=== PATIENT | female | born 1960 | race African-American/Black ===

== ENCOUNTER 2017-05-20 07:25 | Day surgery (SDC) | payer OTHER ==
[2017-05-20] VITALS (8 sets, daily range): BP systolic 93–134; BP diastolic 53–66
[~2017-05-20] VITALS: Ht 165.1 cm; Wt 70.8 kg
[2017-05-20] MEDS ORDERED: HYDROCHLOROTHIA50 MG ORAL (08:06)
[2017-05-20] MEDS ORDERED: ATENOLOL50 MG ORAL (08:06)
[2017-05-20] MEDS ORDERED: METFORMIN HCL500 M4 ORAL (08:06)
[2017-05-20] MEDS ORDERED: LOSARTAN POTAS100 MG ORAL (08:06)
--- NOTE | 2017-05-20 08:50 | Short Stay Surgery H&P ---
History of Present Illness History of Present Illness Chief Complaint screening colon HPI Hailey Bucio is a 57 year old female who was admitted on for Screening Colonoscopy Patient History Allergies: Coded Allergies: No Known Allergies (Unverified , 05/20/17) PAST MEDICAL HISTORY: (1) HTN (hypertension) (2) DM Medication History Scheduled Atenolol* (Tenormin*), 50 MG ORAL DAILY, (Reported) Hydrochlorothiazide* (Hydrochlorothiazide*), 50 MG ORAL TID, (Reported) Losartan Potassium (Losartan Potassium), 100 MG ORAL DAILY, (Reported) Metformin Hcl (Metformin Hcl Er), 500 MG ORAL BID, (Reported) Review of Systems Cardiovascular: Reports: no symptoms Respiratory: Reports: no symptoms Skeletal: Reports: no symptoms Gastrointestinal: Reports: no symptoms Genitourinary: Reports: no symptoms Neurologic: Reports: no symptoms Endocrine: Reports: no symptoms Hematologic: Reports: no symptoms Physical Exam Vital Signs Last Vital Signs Date Time Temp Pulse Resp B/P (MAP) Pulse Ox O2 Delivery O2 Flow Rate FiO2 05/20/17 08:07 97.3 61 14 134/66 99 Room Air 97.3 Skin: normal HENT: normal Heart: normal Lungs: normal Abdomen: normal Extremities: normal Plan Plan of Care colonoscopy Attestation Are the patient's medical conditions optimized for surgery? Attestation Response: yes EMILY SANDERS May 20, 2017 08:50
--- NOTE | 2017-05-20 08:51 | Pre-Procedure Note/Attestation ---
Pre-Procedure Note/Attestation Complete Prior to Procedure Planned Procedure: not applicable Procedure Narrative: colonoscopy Indications for Procedure Pre-Operative Diagnosis: screening Attestation I attest that I discussed the nature of the procedure; its benefits; risks and complications; and alternatives (and the risks and benefits of such alternatives ), prior to the procedure, with the patient (or the patient's legal corporate sales representative). I attest that, if there was a reasonable possibility of needing a blood transfusion, the patient (or the patient's legal corporate sales representative) was given the [facility] standardized written summary, pursuant to the [place] Blood Safety Act ([place] Health and Safety Code # 1645, as amended). I attest that I re-evaluated the patient just prior to the surgery and that there has been no change in the patient's H&P, except as documented below: EMILY SANDERS May 20, 2017 08:51
[2017-05-20] MEDS ORDERED: Lidocaine 1% MPF 10mg/ml 5ml ONE (09:00)
[2017-05-20] MEDS ORDERED: Propofol 200mg/20ml IV ONE (09:00)
--- NOTE | 2017-05-20 09:07 | Anethesia Preoperative Eval ---
Anesthesia Pre-op PMH/ROS General Date of Evaluation: May 20, 2017 Time of Evaluation: 08:58 Anesthesiologist: camelia ASA Score: ASA 3 Mallampati Score Class I : Soft palate, uvula, fauces, pillars visible Class II: Soft palate, uvula, fauces visible Class III: Soft palate, base of uvula visible Class IV: Only hard plate visible Mallampati Classification: Class I Surgeon: jc Diagnosis: colon screening Surgical Procedure: colonoscopy Anesthesia History: none Family History: no anesthesia problems Allergies: Coded Allergies: No Known Allergies (Unverified , 05/20/17) Medications: see eMAR Past Medical History Cardiovascular: Reports: HTN Endocrine: Reports: DM Anesthesia Pre-op Phys. Exam Physician Exam Last Vital Signs Date Time Temp Pulse Resp B/P (MAP) Pulse Ox O2 Delivery O2 Flow Rate FiO2 05/20/17 08:07 97.3 61 14 134/66 99 Room Air 97.3 Constitutional: NAD Neurologic: CN 2-12 intact Cardiovascular: RRR Respiratory: CTA Gastrointestinal: S/NT/ND Airway Exam Mallampati Score: Class II MO: full Neck: supple TMD: 2fb ROM: full Teeth: missing Anesthesia Pre-op A/P Risk Assessment & Plan Assessment: asa3 Plan: mac Status Change Before Surgery: No Pre-Antibiotics Drug: MARIBEL Matt May 20, 2017 09:07
[2017-05-20] MEDS ORDERED: DiphenhydrAMINE 50mg/ml Inj IVP PRN (09:15)
[2017-05-20] MEDS ORDERED: fentaNYL 100 mcg/2 mL IV PRN (09:15)
[2017-05-20] MEDS ORDERED: Atropine Inj 1mg/10ml Syr IV PRN (09:15)
[2017-05-20] MEDS ORDERED: Midazolam 2mg/2ml Inj IVP PRN (09:15)
--- NOTE | 2017-05-20 09:55 | Immediate Post-Op Evaluation ---
Immediate Post-Op Evalulation Immediate Post-Op Evalulation Procedure: colonoscopy Date of Evaluation: May 20, 2017 Time of Evaluation: 09:56 IV Fluids: 800ml 0.9ns Blood Products: none Estimated Blood Loss: negligible Blood Pressure Systolic: 93 Blood Pressure Diastolic: 66 Pulse Rate: 60 Respiratory Rate: 18 O2 Sat by Pulse Oximetry: 10 Temperature (Fahrenheit): 7.1 Pain Score (1-10): 0 Nausea: No Vomiting: No Complications none Patient Status: awake, reacts, patent Hydration Status: adequate Drug: MARIBEL Matt May 20, 2017 09:55
--- NOTE | 2017-05-20 09:59 | Endoscopy Procedure Note ---
Endoscopy Procedure Note General Indication for Procedure: screening Procedures Performed: colonoscopy Operative Findings/Diagnosis: 4 polyps Specimen: yes Pt Tolerated Procedure Well: Yes Estimated Blood Loss: none Anesthesia Anesthesiologist: camelia Anesthesia: MAC Inserted Devices Implant(s) used?: No Quality Quality of Bowel Preparation: Good Did scope reach the cecum?: Yes Was there any complications?: No GI Core Measures 50 yrs or older w/o bx or poly: No 10yrs. F/U not recommended: Yes If not recommended, why?: Above average risk 10 yrs. F/U needed: Yes 18 years or older w/prev. colo: No EMILY SANDERS May 20, 2017 09:59
--- NOTE | 2017-05-20 13:09 | 48 Hour Post Anesthesia Eval ---
Post Anesthesia Evaluation Procedure: colonoscopy Date of Evaluation: May 20, 2017 Time of Evaluation: 09:58 Blood Pressure Systolic: 99 0: 66 Pulse Rate: 60 Respiratory Rate: 18 Temperature (Fahrenheit): 97.1 O2 Sat by Pulse Oximetry: 99 Airway: patent Nausea: No Vomiting: No Pain Intensity: 0 Hydration Status: adequate Cardiopulmonary Status: stable Mental Status/LOC: patient returned to baseline Post-Anesthesia Complications: none Follow-up care needed: N/A MARIBEL HUMPHRIES May 20, 2017 13:09
--- NOTE | 2017-05-20 16:15 | Procedure Note ---
DATE OF PROCEDURE: 05/20/2017 SURGEON: Mark Moulton M.D. ANESTHESIOLOGIST: Dr. Lozano. PROCEDURE: Colonoscopy with biopsy. ANESTHESIA: Per Dr. Lozano. INSTRUMENT: Olympus adult flexible colonoscope. INDICATION: Screening colonoscopy. The procedure, risks, benefits, and possible consequences, including hemorrhage, aspiration, perforation and infection, and alternative treatments, were explained to the patient/legal guardian by Dr. Mark Moulton and the patient/legal guardian understood and accepted these risks. DESCRIPTION OF PROCEDURE: After informed consent was obtained and the patient was adequately sedated, first rectal exam was performed which was normal. Then, the scope was advanced from the rectum into the cecum then subsequently terminal ileum. The quality of prep was good in the left colon but in the right colon especially in the area of the cecum and proximal ascending colon, there was some stool covering may be about 5% to 7% of the lining in that area. The patient had normal terminal ileum. The patient had four polyps in the sigmoid colon, most of them looked hyperplastic, which were biopsied and sent for pathology. The patient had one single diverticulum in the right colon. Retroflexion of rectum showed evidence of internal hemorrhoids. SUMMARY OF FINDINGS: 1. Four colonic polyps removed. 2. One single diverticulum in the right colon. 3. Internal hemorrhoids. RECOMMENDATIONS: Follow up biopsy and treat accordingly. Given four polyps, we recommended to do colonoscopy in three years. Mark Moulton M.D. DR: Ricardo JOB#: [id number] CC:
--- NOTE | 2017-05-20 16:51 | Cardiology Report ---
APPROVED REPORT EKG Measurement Heart [id number] Normal sinus rhythm Minimal voltage criteria for LVH, may be normal variant Nonspecific T wave abnormality Abnormal ECG
== END 2017-05-20 10:55 | disposition home or self-care (01) ==
LOC: GAS 07:25
DX: Z12.31 Encounter for screening mammogram for malignant neoplasm of breast (principal); D12.5 Benign neoplasm of sigmoid colon; K63.5 Polyp of colon; K57.30 Diverticulosis of large intestine without perforation or abscess without bleeding; K64.8 Other hemorrhoids; I10 Essential (primary) hypertension; E11.9 Type 2 diabetes mellitus without complications
CPT/HCPCS: 45380; 82962; 93005; J2704; 94003; 94150